=== PATIENT | female | born 1990 | race American Indian/Alaskan Native ===

== ENCOUNTER 2018-12-09 17:07 | Emergency (ER) | payer OTHER ==
--- NOTE | 2018-12-09 17:21 | Emergency Department Report ---
Chief Complaint: Urogenital-Female Stated Complaint: PAIN LOWER ABD Time Seen by Provider: 12/09/18 17:17 - HPI History of Present Illness: This is a 28 y.o. F that presents with vaginal discomfort since last night. Reports pelvic pain, itching, and dysuria. Denies urinary frequency, urgency, vaginal discharge, back pain. LMP 05/2018, history of irregular periods. A0 Patient is concerned of possible STD. - Exam Vital Signs: Vital Signs 12/09/18 17:17 Temperature 98.2 F Pulse Rate 85 Respiratory 18 Rate Blood Pressure 135/72 O2 Sat by Pulse 100 Oximetry MSE screening note: Focused history and physical exam performed. Due to findings the following was ordered: This initial assessment/diagnostic orders/clinical plan/treatment(s) is/are subject to change based on patient's health status, clinical progression and re- assessment by fellow clinical providers in the ED. Further treatment and workup at subsequent clinical providers discretion. Patient/guardians urged not to elope from the ED as their condition may be serious if not clinically assessed and managed. Initial orders include: 1- Patient sent to [facility] for further evaluation and treatment 2- Labs ED Disposition for MSE Condition: Stable
[2018-12-09 18:45] LABS: HCG Qualitative,Urine Negative (Negative)
[2018-12-09 18:49] LABS: Amorphous Crystals,Urine Few; Bacteria,Urine 1+ /HPF (Negative); Bilirubin,Urine NEG (Negative); Blood,Urine NEG (Negative); Color,Urine Yellow (Yellow); Mucus,Urine 2+ /HPF; Protein,Urine <15 mg/dL mg/dL (Negative)
[2018-12-09] MEDS ORDERED: XYLOCAINE 1% MPF 5 mL INFILTRATI ONE (20:30)
[2018-12-09] MEDS ORDERED: ZITHROMAX PO ONE (20:30)
[2018-12-09] MEDS ORDERED: ROCEPHIN IM ONE (20:30)
[2018-12-09] MEDS ORDERED: IBUPROFEN PO ONE (20:45)
[2018-12-09] MEDS ORDERED: IBUPROFEN ONE (20:48)
--- NOTE | 2018-12-09 20:51 | Emergency Department Report ---
ED Female HPI - General Chief complaint: Urogenital-Female Stated complaint: PAIN LOWER ABD Time Seen by Provider: 12/09/18 17:17 Source: patient Mode of arrival: Ambulatory Limitations: No Limitations - History of Present Illness Initial comments: his is a 28 y.o. F that presents with vaginal discomfort since last night. Reports pelvic pain, itching, and dysuria. Denies urinary frequency, urgency, vaginal discharge, back pain. LMP 05/2018, history of irregular periods. A0 Patient is concerned of possible STD. MD Complaint: vaginal discharge, dysuria, possible STD (partner advises partner postive for STD ) Onset/Timin -: days(s) Location: suprapubic Radiation: suprapubic Severity: moderate Severity scale (0 -10): 3 Quality: burning, other (itching ) Consistency: constant Improves with: none Worsens with: urination Are you Now?: No Last Menstrual Period: 11/25/18 EDC: 09/01/19 Associated Symptoms: vaginal discharge, dysuria - Related Data Sexually active: Yes Previous Rx's Medication Instructions Recorded Last Taken Type Ibuprofen [Motrin 800 MG tab] 800 mg PO Q8HR PRN #30 tablet 12/09/18 Unknown Rx metroNIDAZOLE [Flagyl] 500 mg PO BID 10 Days #20 tab 12/09/18 Unknown Rx Allergies Allergy/AdvReac Type Severity Reaction Status Date / Time No Known Allergies Allergy Verified 12/09/18 17:08 ED Review of Systems ROS: Stated complaint: PAIN LOWER ABD Other details as noted in HPI Constitutional: denies: chills, fever Eyes: denies: eye pain, eye discharge, vision change ENT: denies: ear pain, throat pain Respiratory: denies: cough, shortness of breath, wheezing Cardiovascular: denies: chest pain, palpitations Endocrine: no symptoms reported Gastrointestinal: denies: abdominal pain, nausea, vomiting, diarrhea Genitourinary: urgency, dysuria, frequency, discharge. denies: hematuria Musculoskeletal: denies: back pain, joint swelling, arthralgia Skin: denies: rash, lesions Neurological: denies: headache, numbness, paresthesias, confusion Psychiatric: denies: anxiety, depression Hematological/Lymphatic: denies: easy bleeding, easy bruising ED Past Medical Hx - Past Medical History Hx Hypertension: Yes - Surgical History Additional Surgical History: C/S - Social History Smoking Status: Never Smoker Substance Use Type: None - Medications Home Medications: Home Medications Medication Instructions Recorded Confirmed Last Taken Type Ibuprofen [Motrin 800 MG tab] 800 mg PO Q8HR PRN #30 tablet 12/09/18 Unknown Rx metroNIDAZOLE [Flagyl] 500 mg PO BID 10 Days #20 tab 12/09/18 Unknown Rx ED Physical Exam - General Limitations: No Limitations General appearance: alert, in no apparent distress - Head Head exam: Present: atraumatic, normocephalic - Eye Eye exam: Present: normal appearance, PERRL, EOMI Pupils: Present: normal accommodation - ENT ENT exam: Present: normal exam, mucous membranes moist - Neck Neck exam: Present: normal inspection, full ROM. Absent: tenderness, lymphadenopathy, thyromegaly - Respiratory Respiratory exam: Present: normal lung sounds bilaterally. Absent: respiratory distress, wheezes, rhonchi, chest wall tenderness - Cardiovascular Cardiovascular Exam: Present: regular rate, normal rhythm, normal heart sounds - GI/Abdominal GI/Abdominal exam: Present: soft, normal bowel sounds. Absent: distended, tenderness, guarding, rebound, rigid, bruit, hernia - Rectal Rectal exam: Present: deferred - External exam: Present: other (exam deferred by patient to powered bridge specialist follow up in 2 days ) - Extremities Exam Extremities exam: Present: normal inspection, full ROM, normal capillary refill. Absent: tenderness - Back Exam Back exam: Present: normal inspection, full ROM. Absent: tenderness, CVA tenderness (R), CVA tenderness (L), muscle spasm, rash noted - Neurological Exam Neurological exam: Present: alert, oriented X3, normal gait - Psychiatric Psychiatric exam: Present: normal affect, normal mood - Skin Skin exam: Present: warm, dry, intact, normal color. Absent: rash ED Course Vital Signs 12/09/18 17:17 Temperature 98.2 F Pulse Rate 85 Respiratory 18 Rate Blood Pressure 135/72 O2 Sat by Pulse 100 Oximetry ED Medical Decision Making - Medical Decision Making this is a std exposure pt tx'd for same will follow up with [facility] Department tomorrow for HIV and HSV screening Critical care attestation.: If time is entered above; I have spent that time in minutes in the direct care of this critically ill patient, excluding procedure time. ED Disposition Clinical Impression: Exposure to STD Disposition: DC-01 TO HOME OR SELFCARE Is pt being admited?: No Does the pt Need Aspirin: No Condition: Stable Instructions: Sexually Transmitted Diseases (ED) Prescriptions: metroNIDAZOLE [Flagyl] 500 mg PO BID 10 Days #20 tab Ibuprofen [Motrin 800 MG tab] 800 mg PO Q8HR PRN #30 tablet PRN Reason: pain Referrals: INEZ RUSSELL MD [Primary Care Provider] - 3-5 Days [facility] [Outside] - 3-5 Days Forms: Work/School Release Form(ED) Time of Disposition: 21:02
[2018-12-09 21:23] VITALS: BP 122/84
== END 2018-12-09 21:23 | disposition home or self-care (01) ==
LOC: ED 17:07
DX: A64 Unspecified sexually transmitted disease (principal); I10 Essential (primary) hypertension
CPT/HCPCS: 81001; 81025; 96372; 99284; J0696